=== PATIENT | male | born 1970 | race Caucasian/White ===

== ENCOUNTER 2021-10-20 19:05 | Observation (INO) | payer BC ==
--- NOTE | 2021-10-20 19:52 | EDPHYS ---
Physician Documentation [facility] Name: Bolivar Tiwari Age: 50 yrs Sex: Male : 1970 Arrival Date: 10/20/2021 Time: 19:05 Bed 6 Private MD: ELIZABETH Physician Michael Blas HPI: 10/20 19:41 This 50 yrs old Male presents to ER via Ambulatory with complaints of Chest devi Pain > 30 y/o. Historical: - Allergies: 19:17 No Known Allergies; ld1 - Home Meds: 19:17 None [Active]; ld1 - PMHx: 19:17 None; ld1 - PSHx: 19:17 None; ld1 - Immunization history:: Adult Immunizations up to date, Client reports receiving the 2nd dose of the Covid vaccine. - Social history:: Smoking status: Patient reports the use of cigarette tobacco products, smokes one pack cigarettes per day. Patient uses alcohol, on a daily basis. ROS: 19:45 Constitutional: Negative for fever, chills, and weight loss, Eyes: Negative for injury, devi pain, redness, and discharge, ENT: Negative for injury, pain, and discharge, Neck: Negative for injury, pain, and swelling, Respiratory: Negative for shortness of breath, cough, wheezing, and pleuritic chest pain, Abdomen/GI: Negative for abdominal pain, nausea, vomiting, diarrhea, and constipation, Back: Negative for injury and pain, : Negative for injury, bleeding, discharge, and swelling, MS/Extremity: Negative for injury and deformity, Skin: Negative for injury, rash, and discoloration, Neuro: Negative for headache, weakness, numbness, tingling, and seizure, Psych: Negative for depression, anxiety, suicide ideation, homicidal ideation, and hallucinations, Allergy/Immunology: Negative for hives, rash, and allergies, Endocrine: Negative for neck swelling, polydipsia, polyuria, polyphagia, and marked weight changes, Hematologic/Lymphatic: Negative for swollen nodes, abnormal bleeding, and unusual bruising. 19:45 Neck: Positive for 19:45 Cardiovascular: Positive for chest pain, of the chest. Exam: 19:45 Constitutional: This is a well developed, well nourished patient who is awake, alert, devi and in no acute distress. Head/Face: Normocephalic, atraumatic. Eyes: Pupils equal round and reactive to light, extra-ocular motions intact. Lids and lashes normal. Conjunctiva and sclera are non-icteric and not injected. Cornea within normal limits. Periorbital areas with no swelling, redness, or edema. ENT: Nares patent. No nasal discharge, no septal abnormalities noted. Tympanic membranes are normal and external auditory canals are clear. Oropharynx with no redness, swelling, or masses, exudates, or evidence of obstruction, uvula midline. Mucous membranes moist. Neck: Trachea midline, no thyromegaly or masses palpated, and no cervical lymphadenopathy. Supple, full range of motion without nuchal rigidity, or vertebral point tenderness. No Meningismus. Chest/axilla: Normal chest wall appearance and motion. Nontender with no deformity. No lesions are appreciated. Respiratory: Lungs have equal breath sounds bilaterally, clear to auscultation and percussion. No rales, rhonchi or wheezes noted. No increased work of breathing, no retractions or nasal flaring. Abdomen/GI: Soft, non-tender, with normal bowel sounds. No distension or tympany. No guarding or rebound. No evidence of tenderness throughout. Back: No spinal tenderness. No costovertebral tenderness. Full range of motion. Male : Normal genitalia with no discharge or lesions. Skin: Warm, dry with normal turgor. Normal color with no rashes, no lesions, and no evidence of cellulitis. MS/ Extremity: Pulses equal, no cyanosis. Neurovascular intact. Full, normal range of motion. Neuro: Awake and alert, GCS 15, oriented to person, place, time, and situation. Cranial nerves II-XII grossly intact. Motor strength 5/5 in all extremities. Sensory grossly intact. Cerebellar exam normal. Normal gait. Psych: Awake, alert, with orientation to person, place and time. Behavior, mood, and affect are within normal limits. 19:45 Cardiovascular: Rate: normal, Rhythm: regular, Pulses: Pulses are 4+ in bilateral radial, brachial, femoral, popliteal, posterior tibial and and dorsalis pedis arteries.. Heart sounds: normal, normal S1and S2, no S3 or S4, no murmur, no rub, no gallop, Edema: is not appreciated, JVD: is not appreciated. 19:45 ECG was reviewed by the Attending Physician. Vital Signs: 19:15 BP 176 / 91; Pulse 87; Resp 20; Temp 98.5(O); Pulse Ox 98% on R/A; Weight 90.72 kg; ld1 Height 5 ft. 9 in. (175.26 cm); Pain 3/10; 19:54 BP 154 / 88; Pulse 63; Resp 18 S; Pulse Ox 100% on R/A; lg3 21:30 BP 149 / 88; Pulse 78; Resp 17; Pulse Ox 98% on R/A; lg3 19:15 Body Mass Index 29.53 (90.72 kg, 175.26 cm) ld1 MDM: 19:23 Patient medically screened. devi 19:47 Differential diagnosis: abnormal EKG, acute myocardial infarction, acute pericarditis, devi chest wall pain, congestive heart failure costochondritis, gastritis, hiatal hernia, pancreatitis, pericarditis, stable angina, unstable angina. HEART Score: History: Moderately Suspicious (1), ECG: Non specific repolarization disturbance / LBTB / PM (1), Age: > 45 and < 65 years (1), Risk Factors: > or = 3 Risk factors for atherosclerotic disease (2), [Hypertension] [Active Smoker] [+ Family HX] Troponin: < or = 1 x Normal Limit (0). The patient was given aspirin in the Emergency Department. The patient's deep vein thrombosis risk score was calculated as follows: Total Score: 0. This patient was found to be at low risk for a deep vein thrombosis by using the Well's assessment criteria. The patient's pulmonary embolism risk score was calculated as follows: Total Score: 0-2 points. This patient was found to be at low risk for a pulmonary embolism by using the Well's assessment criteria. KAMARI Risk Score: 1 - Three or more CAD risk factors, TOTAL SCORE = 1. Data reviewed: vital signs, nurses notes, lab test result(s), EKG, radiologic studies, plain films. Data interpreted: logistics management specialist: rate is 87 beats/min, rhythm is. 10/20 19:21 Order name: Basic Metabolic Panel; Complete Time: 21:08 ld1 10/20 19:21 Order name: CBC with Diff; Complete Time: 20:13 ld1 10/20 19:21 Order name: Troponin HS; Complete Time: 21:08 ld10/20 19:29 Order name: SARS-COV-2 RT PCR (Document "Date of Onset" if Symptomatic); Complete Time: devi :10/20 19:44 Order name: Lipase; Complete Time: 21: [facility] 10/20 19:45 Order name: Lipid Profile; Complete Time: 21:08 [facility] 10/20 19:21 Order name: XRAY Chest (1 view); Complete Time: 20:13 ld10/20 19:21 Order name: EKG; Complete Time: 19:22 ld10/20 19:21 Order name: Cardiac monitoring; Complete Time: 19:54 ld10/20 19:21 Order name: EKG - Nurse/Tech; Complete Time: 19:21 ld10/20 19:21 Order name: IV Saline Lock; Complete Time: 19:54 ld10/20 19:21 Order name: Labs collected and sent; Complete Time: 19:54 ld10/20 19:21 Order name: O2 Per Protocol; Complete Time: 19:39 ld10/20 19:21 Order name: O2 Sat Monitoring; Complete Time: 19:39 ld1 EC:45 Rate is 86 beats/min. Rhythm is regular. QRS [place] is Normal. [place] interval is normal. QRS devi interval is normal. QT interval is normal. No Q waves. T waves are Normal. ST Segment is depressed in lead III. Clinical impression: NSR w/ Non-specific ST/T Changes and Cardiac ischemia. Interpreted by me. Reviewed by me. Administered Medications: 20:15 CANCELLED (not avaliablee): Zocor 40 mg PO once lg3 20:20 Drug: Lipitor (atorvastatin) 20 mg Route: PO; lg3 20:21 Follow up: Response: No adverse reaction lg3 20:21 Drug: PlaVIX (clopidogrel) 150 mg Route: PO; lg3 20:21 Follow up: Response: No adverse reaction lg3 20:22 Drug: Lopressor (metoprolol TARTRATE) 50 mg Route: PO; lg3 20:22 Follow up: Response: No adverse reaction lg3 20:22 Drug: Aspirin 81 mg Route: PO; lg3 20:22 Follow up: Response: No adverse reaction lg3 21:28 Drug: NS 0.9% 1000 ml Route: IV; Rate: 125 ml/hr; Site: right forearm; lg3 21:29 Drug: morphine 4 mg Route: IVP; Site: right forearm; lg3 21:29 Follow up: Response: No adverse reaction; RASS: Alert and Calm (0) lg3 21:29 Drug: Zofran (Ondansetron) 4 mg Route: IVP; Site: right forearm; lg3 21:29 Follow up: Response: No adverse reaction lg3 21:30 Drug: Lovenox (enoxaparin) 90 mg Route: Sub-Q; Site: right lower abdomen; lg3 21:30 Follow up: Response: No adverse reaction lg3 21:30 Drug: Pepcid (famotidine) 20 mg Route: IVP; Site: right forearm; lg3 21:30 Follow up: Response: No adverse reaction lg3 Disposition Summary: 10/20/21 19:52 Hospitalization Ordered Hospitalization Status: Observation devi Provider: Joey Rojas cha Location: Telemetry/MedSurg (observation) devi Condition: Stable devi Problem: new devi Symptoms: have improved devi Bed/Room Type: Standard [facility] Room Assignment: 402(10/20/21 21:40) cg Diagnosis - Chest pain, unspecified devi - Angina pectoris, unspecified edvi - Essential (primary) hypertension devi - Tobacco abuse counseling devi - Tobacco use devi Forms: - Medication Reconciliation Form devi - SBAR form devi Signatures: Dispatcher [employer] EDMichael Sanderson MD MD cha Garcia, Cindy RN RN cg Hyun Jimenez RN RN lg3 Nhi Novoa RN RN [email or web address] Tamiko Conner PA PA sb3 Corrections: (The following items were deleted from the chart) 19:19 19:17 PSHx: Unable to Obtain; ld1 ld1 20:15 19:45 Zocor 40 mg PO once ordered. devi lg3 21:40 19:52 devi cg
--- NOTE | 2021-10-20 19:52 | ER ---
Nurse's Notes [facility] Name: Bolivar Tiwari Age: 50 yrs Sex: Male : 1970 Arrival Date: 10/20/2021 Time: 19:05 Bed 6 Private MD: Diagnosis: Chest pain, unspecified;Angina pectoris, unspecified;Essential (primary) hypertension;Tobacco abuse counseling;Tobacco use Presentation: 10/20 19:15 Chief complaint: Patient states: Today my peripheral vision was "acting funny" at 1800, ld1 I had a slight headache so I checked my blood pressure. Pt reports bp of 165/87 - I chewed up two 81mg aspirin. After that I began to have slight pain in the middle of my chest. Coronavirus screen: At this time, the client does not indicate any symptoms associated with coronavirus-19. Ebola Screen: No symptoms or risks identified at this time. Initial Sepsis Screen: Does the patient meet any 2 criteria? No. Patient's initial sepsis screen is negative. Does the patient have a suspected source of infection? No. Patient's initial sepsis screen is negative. Risk Assessment: Do you want to hurt yourself or someone else? Patient reports no desire to harm self or others. Onset of symptoms was October 20, 2021. 19:15 Method Of Arrival: Ambulatory ld1 19:15 Acuity: ANDREA 3 ld1 Triage Assessment: 19:20 General: Appears in no apparent distress. comfortable, Behavior is cooperative, ld1 anxious. Pain: Complains of pain in chest Pain does not radiate. Pain currently is 3 out of 10 on a pain scale. Quality of pain is described as sharp, Pain began suddenly, Is intermittent. EENT: No signs and/or symptoms were reported regarding the EENT system. Neuro: Level of Consciousness is awake, alert, obeys commands, Oriented to person, place, time, situation. Cardiovascular: Capillary refill < 3 seconds Patient's skin is warm and dry. Rhythm is sinus rhythm. Respiratory: Airway is patent Respiratory effort is even, unlabored. GI: Abdomen is round non-distended. Historical: - Allergies: 19:17 No Known Allergies; ld1 - Home Meds: 19:17 None [Active]; ld1 - PMHx: 19:17 None; ld1 - PSHx: 19:17 None; ld1 - Immunization history:: Adult Immunizations up to date, Client reports receiving the 2nd dose of the Covid vaccine. - Social history:: Smoking status: Patient reports the use of cigarette tobacco products, smokes one pack cigarettes per day. Patient uses alcohol, on a daily basis. Screenin:54 Abuse screen: Denies threats or abuse. Denies injuries from another. Nutritional lg3 screening: No deficits noted. Tuberculosis screening: No symptoms or risk factors identified. Fall Risk None identified. Assessment: 19:54 General: Appears in no apparent distress. comfortable, Behavior is calm, cooperative. lg3 Pain: Complains of pain in chest. Neuro: No deficits noted. [place] Agitation-Sedation Scale (RASS): 0 - Alert and Calm Level of Consciousness is awake, alert, obeys commands, Oriented to person, place, time, situation. Cardiovascular: Reports chest pain, Capillary refill < 3 seconds Clubbing of nail beds is absent JVD is absent Patient's skin is warm and dry. Respiratory: No deficits noted. Airway is patent Trachea midline Respiratory effort is even, unlabored, Respiratory pattern is regular, symmetrical. GI: No deficits noted. No signs and/or symptoms were reported involving the gastrointestinal system. : No deficits noted. No signs and/or symptoms were reported regarding the genitourinary system. : No deficits noted. No signs and/or symptoms were reported regarding the genitourinary system. EENT: No deficits noted. No signs and/or symptoms were reported regarding the EENT system. Derm: No deficits noted. No signs and/or symptoms reported regarding the dermatologic system. Skin is intact, is healthy with good turgor, Skin is dry, Skin is pink, warm \\T\\ dry. Musculoskeletal: No deficits noted. No signs and/or symptoms reported regarding the musculoskeletal system. Circulation, motion, and sensation intact. Capillary refill < 3 seconds, Range of motion: intact in all extremities. 21:02 Reassessment: Patient appears in no apparent distress at this time. No changes from lg3 previously documented assessment. Patient and/or family updated on plan of care and expected duration. Pain level reassessed. Patient is alert, oriented x 3, equal unlabored respirations, skin warm/dry/pink. 22:09 General: point of contact- daughter Irene [phone]. lg3 Vital Signs: 19:15 BP 176 / 91; Pulse 87; Resp 20; Temp 98.5(O); Pulse Ox 98% on R/A; Weight 90.72 kg; ld1 Height 5 ft. 9 in. (175.26 cm); Pain 3/10; 19:54 BP 154 / 88; Pulse 63; Resp 18 S; Pulse Ox 100% on R/A; lg3 21:30 BP 149 / 88; Pulse 78; Resp 17; Pulse Ox 98% on R/A; lg3 19:15 Body Mass Index 29.53 (90.72 kg, 175.26 cm) ld1 ED Course: 19:05 Patient arrived in ED. kz 19:17 Triage completed. ld1 19:20 Arm band placed on right wrist. ld1 19:23 Michael Blas MD is Attending Physician. [facility] 19:37 XRAY Chest (1 view) In Process Unspecified. EDMS 19:37 Hyun Jimenez, MARGRET is Primary Nurse. lg3 19:51 Joey Rojas MD is Hospitalizing Provider. [facility] 19:54 Patient has correct armband on for positive identification. Placed in gown. Call light lg3 in reach. Side rails up X 1. Client placed on continuous cardiac and pulse oximetry monitoring. NIBP monitoring applied. quality assurance monitor body on. Door closed. Noise minimized. Warm blanket given. 19:54 SARS-COV-2 RT PCR (Document "Date of Onset" if Symptomatic) Sent. lg3 19:54 Basic Metabolic Panel Sent. lg3 19:54 CBC with Diff Sent. lg3 19:54 Troponin HS Sent. lg3 19:54 Inserted saline lock: 20 gauge in right antecubital area, using aseptic technique. lg3 Blood collected. Patient maintains SpO2 saturation greater than 95% on room air. 20:00 Lipid Profile Sent. lg3 20:00 Lipase Sent. lg3 22:03 No provider procedures requiring assistance completed. Patient admitted, IV remains in lg3 place. intact, bleeding controlled, No redness/swelling at site. Administered Medications: 20:15 CANCELLED (not avaliablee): Zocor 40 mg PO once lg3 20:20 Drug: Lipitor (atorvastatin) 20 mg Route: PO; lg3 20:21 Follow up: Response: No adverse reaction lg3 20:21 Drug: PlaVIX (clopidogrel) 150 mg Route: PO; lg3 20:21 Follow up: Response: No adverse reaction lg3 20:22 Drug: Lopressor (metoprolol TARTRATE) 50 mg Route: PO; lg3 20:22 Follow up: Response: No adverse reaction lg3 20:22 Drug: Aspirin 81 mg Route: PO; lg3 20:22 Follow up: Response: No adverse reaction lg3 21:28 Drug: NS 0.9% 1000 ml Route: IV; Rate: 125 ml/hr; Site: right forearm; lg3 21:29 Drug: morphine 4 mg Route: IVP; Site: right forearm; lg3 21:29 Follow up: Response: No adverse reaction; RASS: Alert and Calm (0) lg3 21:29 Drug: Zofran (Ondansetron) 4 mg Route: IVP; Site: right forearm; lg3 21:29 Follow up: Response: No adverse reaction lg3 21:30 Drug: Lovenox (enoxaparin) 90 mg Route: Sub-Q; Site: right lower abdomen; lg3 21:30 Follow up: Response: No adverse reaction lg3 21:30 Drug: Pepcid (famotidine) 20 mg Route: IVP; Site: right forearm; lg3 21:30 Follow up: Response: No adverse reaction lg3 Outcome: 19:52 Decision to Hospitalize by Provider. devi 22:03 Admitted to Tele accompanied by tech, family with patient, via wheelchair, room 402, lg3 Report called to Rad[facility] 22:03 Condition: stable 22:03 Instructed on the need for admit. 10/21 00:02 Patient left the ED. vc1 Signatures: Dispatcher [employer] Michael Baptiste MD MD cha Gibson, Lacie RN RN lg3 Nhi Novoa RN RN ld1 Shirley Arreola RN RN vc1 Tammie Inman Corrections: (The following items were deleted from the chart) 10/20 19:19 19:17 PSHx: Unable to Obtain; ld1 ld1
--- NOTE | 2021-10-20 19:57 | RAD REPORT ---
EXAM DESCRIPTION: RAD - Chest Single View - 10/20/2021 7:35 pm CLINICAL HISTORY: CHEST PAIN COMPARISON: None available TECHNIQUE: AP portable chest image was obtained 10/20/2021 7:35 pm . FINDINGS: Lungs are clear. Heart and vasculature are normal. No measurable pleural effusion and no p neumothorax. No acute bony abnormality seen. No acute aortic findings suspected. IMPRESSION: No acute cardiopulmonary process.
[2021-10-20 20:06] LABS: Absolute Lymphocytes (CBC) 2.3 K/uL (0.7-4.9); Lymphocytes % 25.8 % (15.3-44.8); MPV 6.9 fL (7.6-11.3); RBC Red Blood Cell Count 4.71 M/uL (4.33-5.43)
[2021-10-20] MEDS ORDERED: CLOPIDOGREL 75 MG TABLET ONE (20:10)
[2021-10-20] MEDS ORDERED: ASPIRIN 81 MG CHEWABLE TABLET ONE (20:10)
[2021-10-20] MEDS ORDERED: METOPROLOL TAR 50 MG TAB ONE (20:10)
[2021-10-20] MEDS ORDERED: ONDANSETRON 4 MG/2 ML VIAL ONE (20:10)
[2021-10-20] MEDS ORDERED: ENOXAPARIN 100 MG/ML SYR SQ ONE (20:11)
[2021-10-20] MEDS ORDERED: NA CHLORIDE 0.9% 1,000 ML ONE (20:11)
[2021-10-20] MEDS ORDERED: FAMOTIDINE 20 MG/2 ML VIAL IV ONE (20:11)
[2021-10-20] MEDS ORDERED: MORPHINE 4 MG/ML SYR ONE (20:15)
[2021-10-20] MEDS ORDERED: ATORVASTATIN 20 MG TAB ONE (20:22)
[2021-10-20 20:23] LABS: Potassium 3.7 mmol/L (3.5-5.1); Troponin High Sensitivity 4.7 pg/mL (<58.9)
--- NOTE | 2021-10-20 23:07 | P.HP ---
Certification for Inpatient Patient admitted to: Observation With expected LOS: <2 Midnights Patient will require the following post-hospital care: None Practitioner: I am a practitioner with admitting privileges, knowledge of patient current condition, hospital course, and medical plan of care. Services: Services provided to patient in accordance with Admission requirements found in Title 42 Section 412.3 of the Code of Federal Regulations <Tamiko Conner - Last Filed: 10/21/21 01:53> Patient History Date of Service: 10/21/21 Reason for admission: Chest Pain History of Present Illness: Patient is a 50-year-old male who presented to the ED with complaints of chest pain. He states that today he noticed that his peripheral vision was blurry so he checked his blood pressure and noticed it was slightly elevated at 162 systolic. He states he took 162 mg chewable aspirin and later experienced chest pain and decided to come to the ER. Labs only significant for elevated cholesterol and triglycerides. Patient does have a family history of DE in brother and father. He also smokes 1.5 pack cigarettes a day. He states that he has had a stress test that was normal over 10 years ago. He does not think he has ever had an echo. He does not follow with cardiology. We will admit patient for observation and further management. Home medications list reviewed: Yes (NA) - Past Medical/Surgical History Diabetic: No Past Medical History: Patient denies medical history Past Surgical History: Patient denies surgical history - Family History Father -: Heart disease Brother -: Heart disease - Social History Smoking Status: Current every day smoker Counseled patient to stop smoking for: less than 10 minutes Smoking therapy provided: Yes Alcohol use: Yes CD- Drugs: No Caffeine use: Yes Place of Residence: Home <Tamiko Conner - Last Filed: 10/21/21 01:53> Date of Service: 10/21/21 <Joey Rojas - Last Filed: 10/21/21 10:45> Allergies No Known Allergies Allergy (Verified 10/20/21 23:49) Home Medications: NK [No Home Meds] 10/21/21 Review of Systems General: Sweats Eyes: Vision Change Cardiovascular: Chest Pain <Tamiko Conner - Last Filed: 10/21/21 01:53> Physical Examination - Physical Exam General: Alert, In no apparent distress, Oriented x3 HEENT: Atraumatic, PERRLA, Mucous membr. moist/pink, EOMI, Sclerae nonicteric Neck: Supple, 2+ carotid pulse no bruit, No LAD, Without JVD or thyroid abnormality Respiratory: Clear to auscultation bilaterally, Normal air movement Cardiovascular: No edema, Regular rate/rhythm, Normal S1 S2, No murmurs Gastrointestinal: Normal bowel sounds, No tenderness Musculoskeletal: No tenderness Integumentary: No rashes Neurological: Normal speech, Normal strength at 5/5 x4 extr, Normal tone, Normal affect - Studies Laboratory Data (last 24 hrs) 10/20/21 19:50: Triglycerides 253 H, Cholesterol 219 H, HDL Cholesterol 27 L, Cholesterol/HDL Ratio 8.11, Lipase 205 10/20/21 19:50: WBC 9.1, Hgb 15.5, Hct 45.0, Plt Count 213 10/20/21 19:50: Sodium 138, Potassium 3.7, BUN 14, Creatinine 0.98, Glucose 101 <Tamiko Conner - Last Filed: 10/21/21 01:53> - Studies Laboratory Data (last 24 hrs) 10/20/21 19:50: Triglycerides 253 H, Cholesterol 219 H, HDL Cholesterol 27 L, Cholesterol/HDL Ratio 8.11, Lipase 205 10/20/21 19:50: WBC 9.1, Hgb 15.5, Hct 45.0, Plt Count 213 10/20/21 19:50: Sodium 138, Potassium 3.7, BUN 14, Creatinine 0.98, Glucose 101 <Joey Rjoas - Last Filed: 10/21/21 10:45> Assessment and Plan - Problems (Diagnosis) (1) Chest pain Current Visit: Yes Status: Acute Qualifiers: Chest pain type: unspecified Qualified Code(s): R07.9 - Chest pain, unspecified (2) Hypercholesterolemia with hypertriglyceridemia Current Visit: Yes Status: Acute - Plan -Chest pain is resolved at this time. monitor on telemetry overnight -Given atorvastatin, aspirin, Plavix, therapeutic Lovenox in the ED. -Cholesterol and triglycerides elevated. Patient states that they were elevated at his last PCP visit and was instructed to improve diet and exercise. Will likely need statin upon discharge -Cardiology consulted. Echo ordered for morning -Initial troponin negative. EKG NSR. Will trend troponin every 6 hours x2 Discharge Plan: Home Plan to discharge in: 24 Hours - Advance Directives Does patient have a Living Will: No Does patient have a Durable POA for Healthcare: No - Code Status/Comfort Care Code Status Assessed: Yes (Full) Critical Care: No Time Spent Managing Pts Care (In Minutes): 50 <Tamiko Conner - Last Filed: 10/21/21 01:53> Date of Service: 10/21/21 Subjective: HPI as mentioned above Physical Examination: Vitals: Afebrile vital signs are stable Physical exam: Cardiovascular: Within normal limits. Lungs: Within normal limits Abdomen: Within normal limits Neuro: Awake, alert, oriented to person place and time Assessment: 1. Chest pain rule out acute coronary syndrome Plan: 1. Continue with current plan of care as mentioned above <Joey Rojas - Last Filed: 10/21/21 10:45>
[2021-10-20] MEDS ORDERED: ACETAMINOPHEN 500 MG TAB PO PRN (23:49)
[2021-10-20] MEDS ORDERED: ONDANSETRON 4 MG/2 ML VIAL IV PRN (23:49)
[2021-10-21 00:36] VITALS: O2SAT 98; BMI 28.3
[2021-10-21 03:11] LABS: Thyroid Stimulating Hormone 0.973 uIU/mL (0.360-3.740)
[2021-10-21] MEDS ORDERED: REGADENOSON 0.4 MG/5 ML SYR IV ONE (07:47)
[2021-10-21] MEDS ORDERED: ASPIRIN EC 81 MG TAB PO SCH (09:00)
[2021-10-21] MEDS ORDERED: ENOXAPARIN 40 MG/0.4 ML SQ SCH (09:00)
[2021-10-21] MEDS ORDERED: NICOTINE 21 MG/PAT TD SCH (09:00)
[2021-10-21 12:35] VITALS: BP 152/86; TEMP 97.5
--- NOTE | 2021-10-21 12:54 | EKG ---
Test Date: 2021-10-20 Test Time: 19:11:01 Nutritional Yeast Supervisor: DOMINGO MEASUREMENT RESULTS: Intervals: Rate: 86 DC: 148 QRSD: 80 QT: 374 QTc: 447 Leroy: P: 62 DC: 148 QRS: 70 T: 53 INTERPRETIVE STATEMENTS: Normal sinus rhythm Possible Left atrial enlargement Borderline ECG No previous ECG available for comparison Electronically Signed On 10-21-21 12:52:01 CDT by Ramon Fitzpatrick
--- NOTE | 2021-10-21 12:56 | RAD REPORT ---
EXAM DESCRIPTION: NM - Rest Stress Cardiac Imaging - 10/21/2021 12:18 pm CLINICAL HISTORY: Chest pain COMPARISON: None. TECHNIQUE: The patient was administered 10.1 mCi of Tc 99m Sestamibi prior to resting SPECT imaging of the heart. The patient was then administered 30.7 mCi of Tc 99m Sestamibi following exercise or ph armacologic stress. Multiplanar SPECT images were reviewed. FINDINGS: The end diastolic volume is 101 ml, the end systolic volume is 37 ml, and the ejection fra ction is 63 %. No stress-induced ischemic changes are identifiable. Slightly decreased activity in the anteroseptal apex does not change between rest and stress imaging. Mildly decreased activity is seen along the inf erolateral wall also unchanged. This is most likely attenuation artifact from the diaphragm rather th an scarring. IMPRESSION: No stress-induced ischemic change identifiable. No large areas of scarred myocardium id entifiable. Ventricular volumes and ejection fraction are normal range.
--- NOTE | 2021-10-21 13:49 | TREADPHA ---
DX: CHEST PAIN Date of Study: 10/21/2021 Ht: 5' 9 " Wt: 192 lb 0 oz Consulting Physician: CORBIN MEDICATIONS: ASPIRIN, LIPITOR, LOVENOX, NICODERM, ZOFRAN HISTORY: 50 YEAR OLD MALE WITH COMPLAINTS OF CHEST PAIN. HISTORY OF HIGH CHOLESTEROL, SMOKES 1.5 PACK DAILY, DRINKS 4-6 BEERS DAILY. PHYSICIAL EXAMINATION: RESTING B.P.: 138/79 RESTING H.R.: 63 RESTING EKG: NORMAL PROTOCOL: LEXISCAN EXERCISE TIME: 3:30 B.P. AT PEAK STRESS: 143/69 IMPRESSION: LEXISCAN INJECTED, FOLLOWED BY CARDIOLITE PER PROTOCOL. SEE NUCLEAR MEDICINE REPORT. NO SUPRAVENTRICULAR AND VENTRICULAR TACHYCARDIA. OCCASIONAL PREMATURE VENTRICULAR COMPLEXES. PATIENT REPORTED CHEST PAIN 2/10 DURING TEST.
--- NOTE | 2021-10-21 13:52 | ECHO ---
HEIGHT: 5 ft 9 in WEIGHT: 192 lb 0 oz DATE OF STUDY: 10/21/[address]: Tamiko Conner 2-DIMENSIONAL: YES M.MODE: YES DOPPLER: YES COLOR FLOW: YES TDS: NO PORTABLE: YES DEFINITY: NO BUBBLE STUDY: NO DIAGNOSIS: CHEST PAIN CARDIAC HISTORY: CATHERIZATION: SURGERY: PROSTHETIC VALVE: PACEMAKER: MEASUREMENTS (cm) DIASTOLIC (NORMALS) SYSTOLIC (NORMALS) IVSd 1.0 (0.6-1.2) LA Diam 2.5 (1.9-4.0) LVEF 64% LVIDd 3.8 (3.5-5.7) LVIDs 2.5 (2.0-3.5) %FS 34% LVPWd 1.0 (0.6-1.2) Ao Diam 2.8 (2.0-3.7) 2 DIMENSIONAL ASSESSMENT: RIGHT ATRIUM: NORMAL LEFT ATRIUM: NORMAL RIGHT VENTRICLE: NORMAL LEFT VENTRICLE: NORMAL TRICUSPID VALVE: NORMAL MITRAL VALVE: NORMAL PULMONIC VALVE: NORMAL AORTIC VALVE: NORMAL PERICARDIAL EFFUSION: NONE AORTIC ROOT: NORMAL LEFT VENTRICULAR WALL MOTION: NORMAL DOPPLER/COLOR FLOW: NORMAL COMMENTS: NORMAL 2D ECHOCARDIOGRAM WITH DOPPLER. NORMAL WALL MOTION ABNORMALITY. NO EFFUSION. TECHNOLOGIST: David ALEXANDER
[2021-10-21] MEDS ORDERED: ATORVASTATIN 20 MG TAB PO SCH (21:00)
--- NOTE | 2021-10-22 09:20 | CON ---
Date of Consultation: 10/21/2021 Reason For Consultation: Hypertension and chest pain. History Of Present Illness: Mr. Tiwari is a young white male without any significant past medical his tory. He has a strong family history of heart disease. He came in with elevated blood pressure, hea daches, visual changes, chest pressure, some nausea. No vomiting or diaphoresis. Denied PND, orthop dolores, pedal edema, palpitations, or syncope. Symptoms were nonexertional and lasted about an hour. S o far EKG, chest x-ray, and blood work are within normal limit. Past Medical History: Negative. Allergies: NONE. Review of Systems: Negative. Social History: Negative. Family History: Positive for heart disease in his family. Medications: None. Physical Examination: Vital Signs: Stable, afebrile. HEENT: Negative. Neck: Supple with no bruit. Chest: Clear. Cardiac: Revealed a regular rhythm and rate. No murmurs, gallops, or rubs. Abdomen: Benign. Extremities: Revealed no clubbing, cyanosis, or edema. Diagnostic Data: Available and were all within normal limit. Impression And Plan: 1.Chest pain, atypical. 2.High blood pressure, new onset. I think Mr. Tiwari needs to have an echocardiogram and stress test in the hospital before he goes home. I think he should go home on a low-dose beta-hanna and follo w up with us as an outpatient or with his primary care physician after his testing is done. KANIKA/SPENSER Voice ID: [id number] Report ID: [id number]
== END 2021-10-21 14:45 | disposition home or self-care (01) ==
LOC: ER 19:05 → ERHOLD 21:36 → 4TH 22:22
PROVIDERS: ADMIT Hospitalist; ATTEND Hospitalist
DX: R07.89 Other chest pain (principal); I10 Essential (primary) hypertension; E78.2 Mixed hyperlipidemia; F17.210 Nicotine dependence, cigarettes, uncomplicated; Z71.6 Tobacco abuse counseling; Z20.822 Contact with and (suspected) exposure to COVID-19; Z82.49 Family history of ischemic heart disease and other diseases of the circulatory system
CPT/HCPCS: 93005; 93017; 93306; 85025; 80048; 36415; 80061; 84443; 84484 ×3; 84439; 83690; 71045; 78452; 96375; 96372; 96374; 99285; U0003; J1650 ×2; J2785; J7030; J2405; J3490; A9500; G0378 ×2

== ENCOUNTER 2023-09-15 13:43 | Observation (INO) | payer BC, OTHER ==
[2023-09-15] MEDS ORDERED: ASPIRIN 81 MG CHEWABLE TABLET ONE (14:16)
[2023-09-15] MEDS ORDERED: NITROGLYCERIN 0.4 MG/TAB SL ONE (14:55)
[2023-09-15 14:58] LABS: Absolute Basophils 0.1 K/uL (0-0.5); Absolute Eosinophils 0.1 K/uL (0-0.5); Absolute Lymphocytes (CBC) 1.1 K/uL (0.7-4.9); Absolute Neutrophil 5.2 K/uL (1.8-8.0); Basophils % 0.8 % (0-1.3); Eosinophils % 0.8 % (0-4.4); Hematocrit 46.5 % (39.6-49.0); Hemoglobin 15.8 g/dL (13.6-17.9); MCHC 34.1 g/dL (32.0-36.0); MCV 99.8 fL (80-100); MPV 7.1 fL (7.6-11.3); Monocytes % 13.1 % (3.3-12.3); Neutrophils % 70.3 % (41.7-73.7); Platelets 232 thou/uL (152-406); RBC Red Blood Cell Count 4.66 M/uL (4.33-5.43); Red Cell Distribution Width 13.9 % (12.1-15.2)
[2023-09-15 14:59] LABS: PT Prothrombin Time 10.8 SECONDS (9.5-12.5); Protime INR 0.98
--- NOTE | 2023-09-15 14:59 | RAD REPORT ---
EXAM DESCRIPTION: RADChest Single View09/15/2023 2:25 pm CLINICAL HISTORY: CHEST PAIN COMPARISON: Chest Single View dated 10/20/2021 TECHNIQUE: Portable AP view of the chest. FINDINGS: The lungs are clear. No pneumothorax or effusion. The cardiomediastinal contours are unre markable. IMPRESSION: No acute cardiopulmonary process.
[2023-09-15 15:12] LABS: ALT/SGPT 70 U/L (16-61); AST/SGOT 29 U/L (15-37); Albumin 4.1 g/dL (3.4-5.0); Albumin/Globulin Ratio 1.1 (1.1-1.8); Alkaline Phosphatase 70 U/L (45-117); Anion Gap 8.7 mEq/L (5.0-15.0); BUN Blood Urea Nitrogen 14 mg/dL (7-18); Bicarbonate 27 mEq/L (21-32); Bilirubin Total 0.3 mg/dL (0.2-1.0); Globulin 3.9 g/dL (2.3-3.5); Glomerular Filtration Rate 80 ml/min (=/>90); Glucose Level 165 mg/dL (74-106); Magnesium 2.4 mg/dL (1.6-2.4); NT PRO-BNP 45 pg/mL (<125); Potassium 3.7 mEq/L (3.5-5.1); Sodium Level 135 mEq/L (136-145); Troponin High Sensitivity 3.2 pg/mL (<58.9)
[2023-09-15 15:15] LABS: Bilirubin Direct < 0.1 mg/dL (0-0.2); Bilirubin Indirect, Calculated ND mg/dL (0.2-0.8)
--- NOTE | 2023-09-15 15:53 | ER ---
Nurse's Notes [facility] Name: Bolivar Tiwari Age: 52 yrs Sex: Male : 1970 Arrival Date: 09/15/2023 Time: 13:43 Bed 6 Private MD: Diagnosis: Chest pain, unspecified Presentation: 09/14 13:47 Chief complaint: Patient states: started having chest pain this morning, stays constant ko1 mid sternal, feels like a knot and pressure. Coronavirus screen: At this time, the client does not indicate any symptoms associated with coronavirus-19. Ebola Screen: No symptoms or risks identified at this time. Initial Sepsis Screen: Does the patient meet any 2 criteria? No. Patient's initial sepsis screen is negative. Does the patient have a suspected source of infection? No. Patient's initial sepsis screen is negative. Risk Assessment: Do you want to hurt yourself or someone else? Patient reports no desire to harm self or others. Onset of symptoms is unknown. 13:47 Method Of Arrival: Ambulatory ko1 13:47 Acuity: ANDREA 3 ko1 Triage Assessment: 13:49 General: Appears in no apparent distress. Behavior is appropriate for age. Pain: ko1 Complains of pain in mid-sternal area. Cardiovascular: Reports chest pain. Historical: - Allergies: 13:49 No Known Allergies; ko1 - PMHx: 13:49 Hypertensive disorder; ko1 - PSHx: 13:49 None; ko1 - Immunization history:: Adult Immunizations up to date. - Social history:: Smoking status: Patient reports the use of cigarette tobacco products, smokes one pack cigarettes per day. Screenin:43 [facility] ED Fall Risk Assessment (Adult) History of falling in the last 3 months, ph including since admission No falls in past 3 months (0 pts) Confusion or Disorientation No (0 pts) Intoxicated or Sedated No (0 pts) Impaired Gait No (0 pts) Mobility Assist Device Used No (0 pt) Altered Elimination No (0 pt) Score/Fall Risk Level 0 - 2 = Low Risk Oriented to surroundings, Maintained a safe environment, Hourly rounding (assess needs \T\ fall precautionary measures) done. Abuse screen: Denies threats or abuse. Denies injuries from another. Nutritional screening: No deficits noted. Tuberculosis screening: No symptoms or risk factors identified. Assessment: 14:51 General: Appears in no apparent distress. comfortable, well groomed, Behavior is calm, ph cooperative, appropriate for age. Pain: Complains of pain in mid-sternal area Pain radiates to anterior aspect of left upper chest Pain began this morning. Neuro: Level of Consciousness is awake, alert, obeys commands, Oriented to person, place, time, situation. Cardiovascular: Reports chest pain, fatigue, shortness of breath, Denies. Respiratory: Airway is patent Respiratory effort is even, unlabored, Respiratory pattern is regular, symmetrical. Derm: Skin is pink, warm \T\ dry. Vital Signs: 13:47 BP 186 / 87; Pulse 110; Resp 15; Temp 99.7; Pulse Ox 98% ; ko1 15:00 BP 173 / 95; Pulse 110; Resp 18; Pulse Ox 96% on R/A; ph 15:42 BP 147 / 78; Pulse 89; Resp 18; Pulse Ox 98% on R/A; ph 16:30 BP 157 / 102; Pulse 94; Resp 18; Temp 98.7; Pulse Ox 97% on R/A; ph ED Course: 13:44 Patient arrived in ED. rg4 13:45 Tamiko Conner PA-C is PHCP. sb4 13:45 Matt Dwyer MD is Attending Physician. sb4 13:49 Triage completed. ko1 13:49 Arm band placed on right wrist. Patient placed in an exam room, on a stretcher, on ko1 cardiac technician, on pulse oximetry, Patient notified of wait time. 14:07 Marcela Bro, RN is Primary Nurse. ph 14:27 XRAY Chest (1 view) In Process Unspecified. EDMS 14:52 Initial lab(s) drawn, by me, sent to lab. EKG done, by ED staff, reviewed by Tamiko Conner PA-C. Inserted saline lock: 20 gauge in right antecubital area, using aseptic technique. Blood collected. Patient maintains SpO2 saturation greater than 95% on room air. 15:32 CT Aorta for Dissection In Process Unspecified. EDMS 15:43 Patient has correct armband on for positive identification. Placed in gown. Bed in low ph position. Call light in reach. Side rails up X 1. Client placed on continuous cardiac and pulse oximetry monitoring. NIBP monitoring applied. quality assurance monitor on. Door closed. Noise minimized. 15:43 Provided Education on: on estimated time for test results and use of call light. ph 15:52 Sascha Olsen is Hospitalizing Provider. sb4 16:31 No provider procedures requiring assistance completed. Patient admitted, IV remains in ph place. Administered Medications: 15:00 Drug: Aspirin PO Chewable Tablet 324 mg PO once; 81 mg tablets x 4 Route: PO; ph 15:41 Follow up: Response: No adverse reaction ph 15:00 Drug: Nitroglycerin Sublingual 0.4 mg Sublingual once; every five minute if needed x3 ph Route: Sublingual; 16:31 Follow up: Response: No adverse reaction; Pain is decreased ph Medication: 15:43 VIS not applicable for this client. ph Outcome: 15:53 Decision to Hospitalize by Provider. sb4 17:19 Patient left the ED. ph 17:19 Admitted to Tele accompanied by tech, family with patient, via wheelchair, room 208, ph 17:19 Condition: good 17:19 Instructed on the need for admit, Signatures: Dispatcher [employer] Marcela Morris, RN MARGRET Vanessa Huitron rg4 Kasey Mir, RN RN Tamiko Donohue, PA-C PA-C sb4
--- NOTE | 2023-09-15 15:54 | EDPHYS ---
Physician Documentation [facility] Name: Bolivar Tiwari Age: 52 yrs Sex: Male : 1970 Arrival Date: 09/15/2023 Time: 13:43 Bed 6 Private MD: ED Physician Matt Dwyer HPI: 09/14 13:55 This 52 yrs old Male presents to ER via Ambulatory with complaints of Chest Pain. sb4 13:56 The patient or guardian reports chest pain that is located primarily in the substernal sb4 area. Onset: this morning. The pain does not radiate. Associated signs and symptoms: Pertinent positives: shortness of breath, Pertinent negatives: diaphoresis, lightheadedness, nausea, palpitations, vomiting. The chest pain is described as a heaviness. Modifying factors: The symptoms are alleviated by nothing. the symptoms are aggravated by nothing. The patient has not experienced similar symptoms in the past. The patient has not recently seen a physician. Historical: - Allergies: 13:49 No Known Allergies; ko1 - PMHx: 13:49 Hypertensive disorder; ko1 - PSHx: 13:49 None; ko1 - Immunization history:: Adult Immunizations up to date. - Social history:: Smoking status: Patient reports the use of cigarette tobacco products, smokes one pack cigarettes per day. ROS: 13:56 Constitutional: Negative for fever, chills, and weight loss, sb4 13:56 Cardiovascular: Positive for chest pain, 13:56 All other systems are negative, Exam: 13:56 Head/Face: Normocephalic, atraumatic. Eyes: Extra-ocular motions intact. Periorbital sb4 areas with no swelling, redness, or edema. ENT: Mucous membranes moist. Cardiovascular: Regular rate and rhythm with a normal S1 and S2. Respiratory: Lungs have equal breath sounds bilaterally, clear to auscultation and percussion. No rales, rhonchi or wheezes noted. No increased work of breathing, no retractions or nasal flaring. Abdomen/GI: Soft, non-tender, no distension. Skin: Warm, dry with normal turgor. Normal color with no rashes, no lesions, and no evidence of cellulitis. MS/ Extremity: Pulses equal, no cyanosis. Neurovascular intact. Full, normal range of motion. Neuro: Awake and alert, GCS 15, oriented to person, place, time, and situation. Motor strength 5/5 in all extremities. Sensory grossly intact. 13:56 Constitutional: The patient appears alert, awake, uncomfortable, Vital Signs: 13:47 BP 186 / 87; Pulse 110; Resp 15; Temp 99.7; Pulse Ox 98% ; ko1 15:00 BP 173 / 95; Pulse 110; Resp 18; Pulse Ox 96% on R/A; ph 15:42 BP 147 / 78; Pulse 89; Resp 18; Pulse Ox 98% on R/A; ph 16:30 BP 157 / 102; Pulse 94; Resp 18; Temp 98.7; Pulse Ox 97% on R/A; ph MDM: 13:50 Patient medically screened. sb4 13:56 Differential diagnosis: acute myocardial infarction, coronary artery disease sb4 esophagitis, gastroesophageal reflux disease (GERD), stable angina, thoracic aortic disection, unstable angina. The patient was given aspirin in the Emergency Department. 15:33 Scoring Tools HEART Score: History: ECG: Age: Risk Factors: 1 or 2 risk factors (1), sb4 Troponin: Total Score = 3. 15:35 Data reviewed: vital signs, nurses notes, lab test result(s), EKG, radiologic studies. sb4 Care significantly affected by the following chronic conditions: Hypertension. Counseling: I had a detailed discussion with the patient and/or guardian regarding the historical points, exam findings, and any diagnostic results supporting the discharge/admit diagnosis, the presence of at least one elevated blood pressure reading (>120/80) during this emergency department visit, lab results, radiology results, smoking cessation. 09/14 13:50 Order name: Basic Metabolic Panel; Complete Time: 15:18 sb4 09/14 13:50 Order name: CBC with Diff; Complete Time: 15:03 sb4 09/14 13:50 Order name: LFT's; Complete Time: 15:18 sb4 09/14 13:50 Order name: Magnesium; Complete Time: 15:18 sb4 09/14 13:50 Order name: NT PRO-BNP; Complete Time: 15:18 sb4 09/14 13:50 Order name: PT-INR; Complete Time: 15:00 sb4 09/14 13:50 Order name: Troponin HS; Complete Time: 15:18 sb4 09/14 16:16 Order name: Thyroid Stimulating Hormone [facility] 09/14 16:16 Order name: Urinalysis w/ reflexes [facility] 09/14 16:16 Order name: CBC with Automated Diff [facility] 09/14 16:16 Order name: CBC with Automated Diff [facility] 09/14 16:16 Order name: CBC with Automated Diff [facility] 09/14 16:16 Order name: Comprehensive Metabolic Panel [facility] 09/14 16:16 Order name: Comprehensive Metabolic Panel [facility] 09/14 16:16 Order name: Comprehensive Metabolic Panel [facility] 09/14 16:16 Order name: Lipid Profile [facility] 09/14 16:16 Order name: Lipid Profile [facility] 09/14 16:16 Order name: Magnesium [facility] 09/14 16:16 Order name: Magnesium [facility] 09/14 16:16 Order name: Troponin High Sensitivity [facility] 09/14 16:16 Order name: Troponin High Sensitivity [facility] 09/14 16:16 Order name: Troponin High Sensitivity [facility] 09/14 13:50 Order name: XRAY Chest (1 view); Complete Time: 15:00 sb4 09/14 15:19 Order name: CT Aorta for Dissection; Complete Time: 16:50 sb4 09/14 13:50 Order name: EKG; Complete Time: 13:50 sb4 09/14 16:16 Order name: CONS Physician Consult [place] 09/14 13:50 Order name: Cardiac monitoring; Complete Time: 14:48 sb4 09/14 13:50 Order name: EKG - Nurse/Tech; Complete Time: 14:34 sb4 09/14 13:50 Order name: IV Saline Lock; Complete Time: 14:48 sb4 09/14 13:50 Order name: Labs collected and sent; Complete Time: 14:48 sb4 09/14 13:50 Order name: O2 Per Protocol; Complete Time: 14:32 sb4 09/14 13:50 Order name: O2 Sat Monitoring; Complete Time: 14:32 sb4 EC:43 Rate is 96 beats/min. Rhythm is regular, Normal Sinus Rhythm. RI interval is normal at sb4 148 msec. QRS interval is normal at 82 msec. QT interval is normal at 352 msec. No Q waves. T waves are Normal. No ST changes noted. Clinical impression: Normal ECG and No evidence of ischemia. Interpreted by me. Reviewed by me. Administered Medications: 15:00 Drug: Aspirin PO Chewable Tablet 324 mg PO once; 81 mg tablets x 4 Route: PO; ph 15:41 Follow up: Response: No adverse reaction ph 15:00 Drug: Nitroglycerin Sublingual 0.4 mg Sublingual once; every five minute if needed x3 ph Route: Sublingual; 16:31 Follow up: Response: No adverse reaction; Pain is decreased ph Disposition: 17:35 Co-signature as Attending Physician, Matt Dwyer MD I reviewed the patient's care rt provided by the Advanced Practice Provider and agree with the diagnosis and treatment plan. Disposition Summary: 09/15/23 15:53 Hospitalization Ordered Notes: Hospitalization Status: Observation sb4 Provider: Sascha Olsen Location: Telemetry/MedSurg (observation) sb4 Condition: Fair sb4 Problem: new sb4 Symptoms: are unchanged sb4 Bed/Room Type: Standard sb4 Room Assignment: 208(09/15/23 16:34) hb Diagnosis - Chest pain, unspecified sb4 Forms: - Medication Reconciliation Form sb4 - SBAR form sb4 - Leadership Thank You Letter sb4 Signatures: Dispatcher [employer] Marcela Morris RN RN ph Rosalia Moreno RN RN hb Kasey Mir RN RN koTamiko Rhoades PA-C PA-C sb4 Matt Dwyer MD MD rt Corrections: (The following items were deleted from the chart) 16:34 15:53 sb4 hb
--- NOTE | 2023-09-15 16:06 | P.HP ---
Certification for Inpatient With expected LOS: >2 Midnights Patient will require the following post-hospital care: None Practitioner: I am a practitioner with admitting privileges, knowledge of patient current condition, hospital course, and medical plan of care. Services: Services provided to patient in accordance with Admission requirements found in Title 42 Section 412.3 of the Code of Federal Regulations Patient History Date of Service: 09/15/23 Reason for admission: angina History of Present Illness: Mr. Tiwari is a 52-year-old male with a past medical history of hypertension, hyperlipidemia, and tobacco abuse. He had a cardiac evaluation October 21, 2021 to include an echocardiogram (at which time his EF was 65%) and a nuclear medicine stress test without abnormality. He was placed on metoprolol XL 25 mg p.o. daily and Lipitor 40 mg p.o. nightly. Mr. Tiwari did not continue those medications. Today he presented to the emergency department with chest pain, shortness of breath, diaphoresis, and nausea. His vital signs on arrival to the emergency department were blood pressure 186/87 heart rate 110 temp 99.7 oxygen saturation 98% on room air. Laboratory evaluation in the emergency department was unremarkable, his troponin was 3.2, chest x-ray negative. He had a CT angiogram to rule out dissection which was negative. However, Mr. Tiwari has not taken any medications to prevent further problems, he smokes 1 pack/day, and has a strong family history of early cardiac disease. We will admit him for further investigation and consultation with cardiology. Allergies No Known Allergies Allergy (Verified 10/20/21 23:49) Home medications list reviewed: Yes (pt does not take daily medications) Home Medications: Aspirin [Aspirin EC 81 MG] 81 mg PO DAILY #30 tablet. 10/21/21 Atorvastatin Calcium [Lipitor*] 20 mg PO BEDTIME #30 tab 10/21/21 Metoprolol Tartrate [Lopressor*] 25 mg PO BID #60 tab 10/21/21 - Past Medical/Surgical History Has patient received pneumonia vaccine in the past: No Diabetic: No -: HTN -: Abscess lower back I and D Psychosocial/ Personal History: Lives at home with his , two daughters. Pt states his other Brother's (suicide) is Tuesday (09/17/23) - Family History Father -: Heart disease, Other (see notes) (first ID in 30's, at 55) Brother -: Heart disease, Other (see notes) (first ID 52, at 59) Mother -: Heart disease, Hypertension - Social History Smoking Status: Current every day smoker Counseled patient to stop smoking for: more than 10 minutes Smoking therapy provided: No Patient receptive to therapy: Yes Alcohol use: Yes CD- Drugs: No Caffeine use: Yes Place of Residence: Home Review of Systems 10-point ROS is otherwise unremarkable Respiratory: Shortness of Breath Cardiovascular: Chest Pain, Palpitations Gastrointestinal: Nausea Integumentary: Other (diaphoresis) Physical Examination - Physical Exam General: Alert, In no apparent distress, Oriented x3 HEENT: Atraumatic, Normocephalic Neck: Supple Respiratory: Normal air movement Cardiovascular: Regular rate/rhythm Capillary refill: <2 Seconds Gastrointestinal: Soft and benign Musculoskeletal: No clubbing, No swelling Integumentary: No rashes Neurological: Normal speech, Normal tone Lymphatics: No axilla or inguinal lymphadenopathy External genitalia: Deferred Rectal: Deferred - Studies Laboratory Data (last 24 hrs) 09/15/23 09/15/23 09/15/23 14:43 14:43 14:43 WBC 7.40 Hgb 15.8 Hct 46.5 Plt Count 232 PT 10.8 INR 0.98 Sodium 135 L Potassium 3.7 BUN 14 Creatinine 1.12 Glucose 165 H Magnesium 2.4 Total Bilirubin 0.3 AST 29 ALT 70 H Alkaline Phosphatase 70 Assessment and Plan - Plan Angina: NTG paste 1" anterior chest wall q 6h (Cardiology ok with Pharm Stress test tomorrow so will hold paste or Imdur) ASA 81mg po daily Morphine 2mg q 4h prn NM pharm stress test in am Consult Cardiology (spoke with Dr. Adorno) HTN: Metoprolol XL 25mg po q daily Lisinopril 2.5 mg po q hs Monitor VS HLD: Atorvastatin 40mg q HS Tobacco abuse: smoking cessation DVT prophylaxis; lovenox GI prophylaxis: protonix Code status: Full - Advance Directives Does patient have a Living Will: No Does patient have a Durable POA for Healthcare: No
[2023-09-15] MEDS: INSULIN REGULAR (HUMAN) 100 UNIT/ML SQ SCH (16:30)
--- NOTE | 2023-09-15 16:46 | RAD REPORT ---
EXAM DESCRIPTION: CT - Angio Aorta For Dissection - 09/15/2023 3:31 pm CLINICAL HISTORY: DISSECTION COMPARISON: No comparisons TECHNIQUE: Thin axial CT images of the chest, abdomen, and pelvis were obtained during administratio n of 100 mL Isovue 370 IV contrast. Sagittal and coronal reconstructions as well as maximal intensity projection reconstruction were generated and reviewed per an aortic angiography protocol. All CT scans are performed using dose optimization technique as appropriate and may include automated exposure control or mA/KV adjustment according to patient size. FINDINGS: Aorta is normal in diameter with no dissection or other acute aortic findings. Reconstruct ion images show no significant findings. [id number] atherosclerotic calcifications throughout t he abdominal aorta. Pulmonary arteries are normal as well. No mass or infiltrate in the lung parenchyma. No pleural thickening, pleural effusion or pneumothorax . No abnormal mediastinal or hilar mass or lymphadenopathy seen. No chest wall mass or abnormal axillar y lymphadenopathy. Celiac, SMA and renal arteries show no suspicious findings. Diffuse parenchymal hypoattenuation sugge sting steatosis. Other solid abdominal viscera and bowel show no significant findings. No mass or abn ormal lymphadenopathy. IMPRESSION: No acute abnormalities on CT angiogram of the aorta. No other significant findings on chest, abdomen and pelvis examination.
[2023-09-15 17:38] VITALS: O2SAT 97
[2023-09-15] MEDS ORDERED: SODIUM CHLORIDE 0.9% 10ML INJ IV PRN (17:44)
[2023-09-15] MEDS ORDERED: NITROGLYCERIN 1 GM PKT TD SCH (18:00)
[2023-09-15] MEDS ORDERED: MORPHINE 2 MG/ML SYR IV PRN (18:09)
[2023-09-15 20:24] VITALS: BMI 28.0
[2023-09-15] MEDS: ATORVASTATIN 40 MG TAB PO SCH (21:07)
[2023-09-15] MEDS: METOPROLOL XL 25 MG TAB PO SCH (21:12)
[2023-09-16 04:30] LABS: Absolute Basophils 0.1 K/uL (0-0.5); Absolute Eosinophils 0.1 K/uL (0-0.5); Absolute Lymphocytes (CBC) 1.3 K/uL (0.7-4.9); Absolute Monocytes 1.1 K/uL (0.1-1.3); Absolute Neutrophil 5.6 K/uL (1.8-8.0); Basophils % 0.8 % (0-1.3); Eosinophils % 1.8 % (0-4.4); Hematocrit 45.1 % (39.6-49.0); Hemoglobin 15.3 g/dL (13.6-17.9); Lymphocytes % 15.4 % (15.3-44.8); MCH 33.7 pg (27.0-35.0); MCV 99.2 fL (80-100); MPV 7.1 fL (7.6-11.3); Monocytes % 13.9 % (3.3-12.3); Neutrophils % 68.1 % (41.7-73.7); Platelets 205 thou/uL (152-406); RBC Red Blood Cell Count 4.55 M/uL (4.33-5.43); Red Cell Distribution Width 14.4 % (12.1-15.2)
[2023-09-16 04:58] LABS: Albumin 3.4 g/dL (3.4-5.0); Albumin/Globulin Ratio 1.1 (1.1-1.8); Anion Gap 8.1 mEq/L (5.0-15.0); Bilirubin Total 0.4 mg/dL (0.2-1.0); Globulin 3.2 g/dL (2.3-3.5); Magnesium 2.5 mg/dL (1.6-2.4); Potassium 4.1 mEq/L (3.5-5.1); Protein, Total 6.6 g/dL (6.4-8.2); Thyroid Stimulating Hormone 1.1 uIU/mL (0.358-3.740); Troponin High Sensitivity 3.3 pg/mL (<58.9)
[2023-09-16] MEDS ORDERED: REGADENOSON 0.4 MG/5 ML SYR IV ONE (08:12)
[2023-09-16] MEDS: PANTOPRAZOLE 40 MG INJ IVP SCH (09:13)
[2023-09-16] MEDS: ASPIRIN EC 81 MG TAB PO SCH (09:13)
[2023-09-16] MEDS: ENOXAPARIN 40 MG/0.4 ML SQ SCH (09:14)
--- NOTE | 2023-09-16 09:47 | RAD REPORT ---
EXAM DESCRIPTION: NM - Rest Stress Cardiac Imaging - 09/16/2023 8:38 am CLINICAL HISTORY: Angina Chest pain. COMPARISON: Rest Stress Cardiac Imaging dated 10/21/2021 TECHNIQUE: The patient was administered approximately 10mCi of Tc 99m Sestamibi prior to resting SPE CT imaging of the heart. The patient was then administered approximately 30 mCi of Tc 99m Sestamibi f ollowing exercise or pharmacologic stress. Multiplanar SPECT images were reviewed. FINDINGS: No stress induced ischemic defect is seen to suggest stress induced ischemia. No fixed def ect is seen to suggest hibernating myocardium or scarred myocardium. The end diastolic volume is 83 ml, the end systolic volume is 27 ml, and the ejection fraction is 68 %. IMPRESSION: No stress induced ischemia.
[2023-09-16 10:31] VITALS: BP 139/80; TEMP 98.3
--- NOTE | 2023-09-16 10:35 | P.DS ---
Admission Date: 09/15/23 Discharge Date: 09/16/23 Reason for Admission: angina Consultations: [facility] Procedures: NM stress test - negative Brief History of Present Illness: Mr. Tiwari is a 52-year-old male with a past medical history of hypertension, hyperlipidemia, and tobacco abuse. He had a cardiac evaluation October 21, 2021 to include an echocardiogram (at which time his EF was 65%) and a nuclear medicine stress test without abnormality. He was placed on metoprolol XL 25 mg p.o. daily and Lipitor 40 mg p.o. nightly. Mr. Tiwari did not continue those medications. Today he presented to the emergency department with chest pain, shortness of breath, diaphoresis, and nausea. His vital signs on arrival to the emergency department were blood pressure 186/87 heart rate 110 temp 99.7 oxygen saturation 98% on room air. Laboratory evaluation in the emergency department was unremarkable, his troponin was 3.2, chest x-ray negative. He had a CT angiogram to rule out dissection which was negative. However, Mr. Tiwari has not taken any medications to prevent further problems, he smokes 1 pack/day, and has a strong family history of early cardiac disease. We will admit him for further investigation and consultation with cardiology. Hospital Course: Test reveals no induced ischemia. Patient advised to take medications previously prescribed for prevention of further heart disease. Smoking cessation recommended. <Antonia Mishra - Last Filed: 09/16/23 10:30> Admission Date: 09/15/23 Discharge Date: 09/16/23 - Problems (1) Chest pain Status: Acute Qualifiers: Chest pain type: unspecified Qualified Code(s): R07.9 - Chest pain, unspecified (2) Hypercholesterolemia with hypertriglyceridemia Status: Acute <bayron gallegos - Last Filed: 09/16/23 18:50> Disposition: ROUTINE DISCHARGE Discharge Condition: FAIR Vital Signs/Physical Exam: Temp Pulse Resp BP Pulse Ox 98.3 F 82 16 139/80 96 09/16/23 09:00 09/16/23 09:00 09/16/23 09:00 09/16/23 09:00 09/16/23 09:00 General: Alert, In no apparent distress, Oriented x3 HEENT: Atraumatic, Normocephalic Neck: Supple Respiratory: Expiratory wheezes Cardiovascular: Normal pulses, Regular rate/rhythm Capillary refill: <2 Seconds Gastrointestinal: Soft and benign Musculoskeletal: No clubbing, No swelling Integumentary: No rashes Neurological: Normal speech, Normal tone Lymphatics: No axilla or inguinal lymphadenopathy External genitalia: Deferred Rectal: Deferred Laboratory Data at Discharge: WBC 8.20 thou/uL (4.3-10.9) 09/16/23 04:15 Hgb 15.3 g/dL (13.6-17.9) 09/16/23 04:15 Hct 45.1 % (39.6-49.0) 09/16/23 04:15 Plt Count 205 thou/uL (152-406) 09/16/23 04:15 PT 10.8 SECONDS (9.5-12.5) 09/15/23 14:43 INR 0.98 09/15/23 14:43 Sodium 139 mEq/L (136-145) 09/16/23 04:15 Potassium 4.1 mEq/L (3.5-5.1) 09/16/23 04:15 BUN 12 mg/dL (7-18) 09/16/23 04:15 Creatinine 0.88 mg/dL (0.70-1.30) 09/16/23 04:15 Glucose 116 mg/dL (74-106) H 09/16/23 04:15 Magnesium 2.5 mg/dL (1.6-2.4) H 09/16/23 04:15 Total Bilirubin 0.4 mg/dL (0.2-1.0) 09/16/23 04:15 AST 27 U/L (15-37) 09/16/23 04:15 ALT 58 U/L (16-61) 09/16/23 04:15 Alkaline Phosphatase 57 U/L (45-117) 09/16/23 04:15 Triglycerides 227 mg/dL (<150) H 09/16/23 04:15 Cholesterol 176 mg/dL (<200) 09/16/23 04:15 HDL Cholesterol 30 mg/dL (40-60) L 09/16/23 04:15 Cholesterol/HDL Ratio 5.87 09/16/23 04:15 <Mishra,Antonia Alvino - Last Filed: 09/16/23 10:30> Vital Signs/Physical Exam: Temp Pulse Resp BP Pulse Ox 98.3 F 82 16 139/80 96 09/16/23 09:00 09/16/23 09:00 09/16/23 09:00 09/16/23 09:00 09/16/23 09:00 Laboratory Data at Discharge: WBC 8.20 thou/uL (4.3-10.9) 09/16/23 04:15 Hgb 15.3 g/dL (13.6-17.9) 09/16/23 04:15 Hct 45.1 % (39.6-49.0) 09/16/23 04:15 Plt Count 205 thou/uL (152-406) 09/16/23 04:15 PT 10.8 SECONDS (9.5-12.5) 09/15/23 14:43 INR 0.98 09/15/23 14:43 Sodium 139 mEq/L (136-145) 09/16/23 04:15 Potassium 4.1 mEq/L (3.5-5.1) 09/16/23 04:15 BUN 12 mg/dL (7-18) 09/16/23 04:15 Creatinine 0.88 mg/dL (0.70-1.30) 09/16/23 04:15 Glucose 116 mg/dL (74-106) H 09/16/23 04:15 Magnesium 2.5 mg/dL (1.6-2.4) H 09/16/23 04:15 Total Bilirubin 0.4 mg/dL (0.2-1.0) 09/16/23 04:15 AST 27 U/L (15-37) 09/16/23 04:15 ALT 58 U/L (16-61) 09/16/23 04:15 Alkaline Phosphatase 57 U/L (45-117) 09/16/23 04:15 Triglycerides 227 mg/dL (<150) H 09/16/23 04:15 Cholesterol 176 mg/dL (<200) 09/16/23 04:15 HDL Cholesterol 30 mg/dL (40-60) L 09/16/23 04:15 Cholesterol/HDL Ratio 5.87 09/16/23 04:15 <bayron gallegos - Last Filed: 09/16/23 18:50> <Tad,Antonia Alvino - Last Filed: 09/16/23 10:30> <rosybayron - Last Filed: 09/16/23 18:50> Home Medications: Aspirin [Aspirin EC] 81 mg PO DAILY #30 tab 09/16/23 Atorvastatin Calcium [Lipitor] 40 mg PO BEDTIME #30 tab 09/16/23 Docosahexanoic AC/Epa [Fish Oil 1,000 MG*] 1,000 mg PO DAILY #30 cap 09/16/23 Lisinopril [Zestril] 2.5 mg PO DAILY #30 tab 09/16/23 Metoprolol Succinate [Toprol Xl*] 25 mg PO BEDTIME #30 tab 09/16/23 New Medications: Aspirin [Aspirin EC] 81 mg PO DAILY #30 tab Docosahexanoic AC/Epa [Fish Oil 1,000 MG*] 1,000 mg PO DAILY #30 cap Atorvastatin Calcium [Lipitor] 40 mg PO BEDTIME #30 tab Metoprolol Succinate [Toprol Xl*] 25 mg PO BEDTIME #30 tab Lisinopril [Zestril] 2.5 mg PO DAILY #30 tab Physician Discharge Instructions: Okay to DC IV and DC home Follow-up with primary care provider in 1 to 2 weeks Follow-up with cardiology in 1 to 2-week Please call the inpatient unit for any questions or concerns regarding hospital stay Return to the ER for worsening symptoms Followup: Aime Adorno MD [ACTIVE - CAN ADMIT] - 1-2 Weeks ( call for appointment.) Stanislaw Otero MD [Primary Care Provider] - 1-2 Weeks (Call for appointment.)
--- NOTE | 2023-09-16 10:57 | TREADPHA ---
DX: CHEST PAIN Date of Study: 09/16/2023 Ht: 5' 9 " Wt: 190 lb 0 oz Consulting Physician: RAMON MEDICATIONS: ASPIRIN, LIPITOR, LOVENOX, FISH OIL, NOVOLIN-R, LISINOPRIL, TOPROL XL, MORPHINE, PROTONIX HISTORY: CHEST PAIN, HYPERTENSION, SMOKER, ETOH, NO DRUG USE PHYSICIAL EXAMINATION: RESTING B.P.: 138/77 RESTING H.R.: 75 RESTING EKG: SINUS RHYTHM PROTOCOL: PHARMACOLOGIC EXERCISE TIME: 3:30 B.P. AT [place]AK STRESS: 135/64 IMPRESSION: LEXISCAN INJECTED. CARDIOLITE INJECTED PER PROTOCOL. SEE NUCLEAR MEDICINE REPORT. NO CHEST PAIN. COMPLIANTS OF SHORTNESS OF BREATH. NO VENTRICULAR TACHYCARDIA. NO SUPRAVENTRICULAR TACHYCARDIA. PREMATURE VENTRICULAR COMPLEXES NOTED WITH LEXISCAN, DURING AND POST EXAM. NO ELECTROCARDIOGRAM CHANTES OF ISCHEMIA WITH LEXISCAN.
--- NOTE | 2023-09-16 11:53 | EKG ---
Test Date: 2023-09-15 Test Time: 14:17:57 Clinical Fellow: ESTHELA MEASUREMENT RESULTS: Intervals: Rate: 96 AR: 148 QRSD: 82 QT: 352 QTc: 444 [place]: P: 72 AR: 148 QRS: 57 T: 64 INTERPRETIVE STATEMENTS: Normal sinus rhythm Normal ECG Compared to ECG 10/20/2021 19:11:01 No significant changes Electronically Signed On 09-16-23 11:49:22 CDT by Aime Adorno
--- NOTE | 2023-09-16 11:57 | PN ---
Date of Progress Note: 09/16/2023 Subjective: Seen by bedside. Denies having any chest pain. He is up and about and ambulating witho ut any symptoms. Had a stress test today that was negative. Completely normal myocardium. Review of Systems: No chest pain, shortness of breath, orthopnea, cough. No nausea, vomiting, diarrhea. All other syst ems reviewed are negative. Physical Examination: Vital Signs: Reviewed. Head and Neck: Pupils are equal and reactive to light. Intact eye movements. No JVD. No cervical lymphadenopathy. Neck is supple. Thyroid is not enlarged. Lungs: Clear to auscultation bilaterally. No rhonchi, rales, or crackles. No accessory muscle use. Heart: Regular rate and rhythm. No extra sounds. Abdomen: Soft, nontender. Bowel sounds positive. No organomegaly. No mass or hernia. No rigidity or rebound. Extremities: No edema, clubbing, or cyanosis. Intact pulses. Skin: No rash or nodule. Neurologic: Alert, awake, oriented x3. No acute focal deficits appreciated. Investigations: Cardiac enzymes are negative. BUN 12, creatinine 0.88, and hemoglobin 15.3. Assessment And Recommendations: 1.Chest pain. It is atypical. Cardiac enzymes are negative. Normal stress test. His major risk f actor is smoking. He was counseled to quit. From cardiac standpoint, he can be released to follow u p as an outpatient and especially if he gets any further chest pain, then coronary angiogram will be offered. 2.Dyslipidemia. Continue Lipitor 40 mg q.h.s. 3.Hypertension. Blood pressure is controlled. Continue current therapy. 4.Smoker. He was counseled to quit. SR/MODL Voice ID: [id number] Report ID: [id number]
[2023-09-16] MEDS ORDERED: lisinopriL 5 MG TAB PO SCH (21:00)
[2023-09-16] MEDS ORDERED: DOCOSAHEXANOIC AC/EPA 1000 MG PO SCH (21:00)
== END 2023-09-16 11:07 | disposition home or self-care (01) ==
LOC: ER 13:43 → ERHOLD 16:08 → 2ND 17:01
PROVIDERS: ADMIT Internal Medicine; ATTEND Internal Medicine
DX: R07.89 Other chest pain (principal); I10 Essential (primary) hypertension; E78.5 Hyperlipidemia, unspecified; F17.210 Nicotine dependence, cigarettes, uncomplicated
CPT/HCPCS: 93005; 93017; 85025 ×2; 80048; 36415; 83735 ×2; 85610; 80061; 82947 ×3; 80076; 84443; 84484 ×3; 80053; 83880; 71275; 74175; 71045; 78452; 99285; Q9967; J2785; C9113; J1650; A9500; G0378